=== PATIENT | male | born 1985 | race African-American/Black ===

== ENCOUNTER 2022-08-06 09:17 | Emergency (ER) | payer OTHER ==
[~2022-08-06] VITALS: Ht 177.8 cm; Wt 67.1 kg
[2022-08-06] MEDS ORDERED: LANTUS SOL100 UNIT/1 (10:00)
== END 2022-08-06 14:25 | disposition home or self-care (01) ==
LOC: ER 09:17
DX: N18.9 Chronic kidney disease, unspecified (principal)